=== PATIENT | male | born 1990 | race Hispanic/Latino ===

== ENCOUNTER 2017-11-22 18:48 | Inpatient (IN) | payer OTHER ==
[~2017-11-22] VITALS: Ht 167.6 cm; Wt 90.8 kg
[2017-11-22] MEDS ORDERED: KETOROLAC TROMETHAMINE 30 MG/ML VIAL IV STA (19:14)
[2017-11-22] MEDS ORDERED: ONDANSETRON HCL 4 MG ORAL DISINTEGRATING TAB PO ONE (19:15)
[2017-11-22] MEDS ORDERED: POTASSIUM CHLORIDE 20 MEQ TAB CR PO STA (19:48)
[2017-11-22] MEDS ORDERED: ULTRAM 50MG50 MG PO (19:53)
[2017-11-22] MEDS ORDERED: MORPHINE SULFATE 2 MG/ML SYR IV PRN (22:45)
[2017-11-23] VITALS (9 sets, daily range): BP systolic 101–117; BP diastolic 54–71
[2017-11-23] MEDS: D5.45%NS/KCL 20MEQ 1,000 ML IV SCH ×2 (01:11→07:30)
[2017-11-23 04:03] LABS: KETONES,URINE NEGATIVE (NEGATIVE); LEUKOCYTE ESTERASE ,URINE TRACE (NEGATIVE); NITRITE,URINE NEGATIVE (NEGATIVE); URINE UROBILINOGEN 4 mg/dL (0.2 - 1)
[2017-11-23 04:08] LABS: BILIRUBIN,URINE 2+ (NEGATIVE); CLARITY,URINE HAZY (CLEAR); COLOR,URINE ORANGE (YELLOW); PROTEIN,URINE DIPSTICK 1+ (NEGATIVE)
[2017-11-23 04:11] LABS: WBC,URINE (MAN) 0-5 /HPF (0-5)
[2017-11-23 04:12] LABS: BACTERIA,URINE RARE /HPF; EPITHELIAL CELLS,URINE FEW /LPF; RBC,URINE 0-5 /HPF (0-5)
[2017-11-23] MEDS: PROMETHAZINE 12.5MG/ NACL 0.9% 12.5 MG/50 ML BAG IV PRN ×2 (07:40→14:10)
[2017-11-23 08:00] LABS: BASOPHILS % 0.2 % (0.0-1.0); EOSINOPHILS # (AUTO) 0.1 (0.0-0.4); EOSINOPHILS % 0.4 % (0.0-6.0); HEMATOCRIT 41.7 % (38.2-49.6); MEAN CORPUSCULAR HEMOGLOBIN 28.4 pg (28-32); MEAN CORPUSCULAR HGB CONC 33.6 g/dL (31-35); MEAN CORPUSCULAR VOLUME 84.6 fL (81-99); MONOCYTES # (AUTO) 0.8 (0.2-0.8); MONOCYTES % 6.2 % (4.4-11.3); NEUTROPHILS # (AUTO) 10.2 (2.1-6.9); PLATELET COUNT 173 x10e3/uL (140-360); RED BLOOD COUNT 4.93 x10e6/uL (4.3-5.7); RED CELL DISTRIBUTION WIDTH 12.8 % (11.7-14.4)
[2017-11-23] MEDS: KETOROLAC TROMETHAMINE 30 MG/ML VIAL IV PRN (08:03)
[2017-11-23 08:24] LABS: ALANINE AMINOTRANSFERASE 484 IU/L (0-55); ALBUMIN 3.6 g/dL (3.5-5.0); ALBUMIN/GLOBULIN RATIO 1.2 (0.8-2.0); ALKALINE PHOSPHATASE 114 IU/L (40-150); AMYLASE 2168 U/L (25-125); ANION GAP 9.5 mmol/L (8-16); BLOOD UREA NITROGEN 8 mg/dL (7-26); BUN/CREATININE RATIO 10 (6-25); CALCIUM 8.6 mg/dL (8.4-10.2); CARBON DIOXIDE 23 mmol/L (22-29); CHLORIDE 105 mmol/L (98-107); CREATININE, SERUM 0.77 mg/dL (0.72-1.25); EST GLOMERULAR FILTRATION RATE > 60 ML/MIN (60-); GLUCOSE 135 mg/dL (74-118); POTASSIUM 3.5 mmol/L (3.5-5.1); SODIUM 134 mmol/L (136-145)
[2017-11-23] MEDS: LACTATED RINGER'S 1,000 ML IV SCH ×3 (09:30→23:30)
[2017-11-23] MEDS: SODIUM CHLORIDE 0.9% 1000ML 1,000 ML IV SCH ×2 (11:15→14:20)
[2017-11-23 11:25] LABS: LIPASE 6768 U/L (8-78)
[2017-11-23] MEDS ORDERED: SODIUM CHLORIDE 0.9% 1000ML 1,000 ML IV ONE ×2 (11:30)
[2017-11-23] MEDS ORDERED: HYDROMORPHONE 1MG/1ML INJ IV PRN (12:15)
[2017-11-23 12:16] LABS: CHOL/HDL RATIO 1.8 (3.9-4.7)
--- NOTE | 2017-11-23 12:36 | History and Physical ---
PRIMARY CARE PHYSICIAN: Dr. Romero. CHIEF COMPLAINT: Abdominal pain. HISTORY OF PRESENT ILLNESS: This is a 27-year-old man with a history of pancreatitis on 2 occasions, had his gallbladder removed in September 2017, now developing worsening abdominal pain with nausea and vomiting, came into the hospital. Here he is found to have a lipase about 6000. He is admitted for further evaluation and management. PAST MEDICAL HISTORY: Gallstone pancreatitis, recurrent pancreatitis on 2 occasions. PAST SURGICAL HISTORY: Cholecystectomy in September 2017. ALLERGIES: PER THE ELECTRONIC MEDICAL RECORDS. FAMILY HISTORY/SOCIAL HISTORY: Patient is . He has no children. 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 No alcohol, illicit drugs or cigarettes. MEDICATIONS: Per the electronic medical records. Medications reviewed. REVIEW OF SYSTEMS: Denies any dizziness, chest pain. VITAL SIGNS: Reviewed. PHYSICAL EXAMINATION GENERAL APPEARANCE: A tired-appearing man resting in bed. HEENT: Anicteric. Pupils responsive to light. No oral lesions. CARDIOVASCULAR: Normal S1/S2. LUNGS: Moderate breath sounds. No wheezing. ABDOMEN: Soft, nondistended. He has tenderness in the epigastric region. No rebound. EXTREMITIES: No edema. SKIN: Dry. PSYCHIATRIC: Flat affect. NEUROLOGICALLY: Alert and oriented x3. LABS: Reviewed. ASSESSMENT AND PLAN: This is a 27-year-old man. 1. Recurrent/acute pancreatitis. He had his gallbladder removed in September. He does not drink alcohol at all. His lipase is about 6000. We will keep patient n.p.o. Aggressive hydration, 2 liter bolus now and increase his fluids to 200 an hour. Will obtain labs, repeat labs in the morning. GI consultation. Will obtain a lipid panel. 2. Obesity. BMI is 33.0. Screening for diabetes and obtain a lipid panel. 3. Acute transaminitis. Rehydrate and recheck. His gallbladder was removed last year. 4. Dehydration. Rehydrate. 5. Abdominal pain. PRN pain medication. 6. Prophylaxis. Will use SCDs. 7. Disposition. Monitor closely. CT scan only shows some inflammatory changes in the peripancreatic region. Job#: [id number] EV
[2017-11-23] MEDS: HYDROMORPHONE 1MG/1ML INJ IV PRN ×2 (14:10→21:45)
[2017-11-23] MEDS ORDERED: LACTATED RINGER'S 1,000 ML IV ONE (15:30)
[2017-11-24] VITALS: BP 115/56
[2017-11-24] MEDS: LACTATED RINGER'S 1,000 ML IV SCH ×7 (02:10→23:45)
[2017-11-24 04:00] VITALS: BP 117/56
--- NOTE | 2017-11-24 06:35 | Progress Note ---
DATE: November 24, 2017 TIME: 6:05 a.m. OVERNIGHT: Less abdominal pain. REVIEW OF SYSTEMS: Denies any dizziness. PHYSICAL EXAMINATION VITAL SIGNS: Reviewed. GENERAL: A tired-appearing man resting in bed. HEENT: Anicteric. CARDIOVASCULAR: Normal S1 and S2. LUNGS: Moderate breath sounds. ABDOMEN: Soft and nondistended. He has mild tenderness in the epigastrium. EXTREMITIES: No edema. SKIN: Dry. PSYCHIATRIC: Flat affect. LABS: Reviewed. MEDICATIONS: Reviewed. ASSESSMENT: A 27-year-old man with: 1. Acute/recurrent pancreatitis. 2. Obesity: Body mass index 33. Hemoglobin A1c 5.1. 3. Acute transaminitis. 4. Dehydration. 5. Abdominal pain. PLAN 1. Follow up lipase this morning. 2. Continue IV fluids. 3. LDL is 16. 4. Alcohol level is less than 10. 5. Continue rehydration. 6. Continue medications. 7. Continue SCD. Job#: [id number] [place]
[2017-11-24 07:38] LABS: BASOPHILS % 0.2 % (0.0-1.0); EOSINOPHILS # (AUTO) 0.1 (0.0-0.4); HEMATOCRIT 38.1 % (38.2-49.6); HEMOGLOBIN 12.6 g/dL (14.0-18.0); LYMPHOCYTES # (AUTO) 1.5 (1.0-3.2); LYMPHOCYTES % 17.6 % (18.0-39.1); MEAN CORPUSCULAR HEMOGLOBIN 28.8 pg (28-32); MEAN CORPUSCULAR HGB CONC 33.1 g/dL (31-35); MONOCYTES # (AUTO) 0.5 (0.2-0.8); MONOCYTES % 6.2 % (4.4-11.3); NEUTROPHILS # (AUTO) 6.5 (2.1-6.9); NEUTROPHILS % 74.8 % (38.7-80.0); PLATELET COUNT 153 x10e3/uL (140-360); RED BLOOD COUNT 4.38 x10e6/uL (4.3-5.7); RED CELL DISTRIBUTION WIDTH 13.1 % (11.7-14.4)
[2017-11-24 08:00] VITALS: BP 111/57
[2017-11-24 08:10] LABS: ALANINE AMINOTRANSFERASE 269 IU/L (0-55); ALKALINE PHOSPHATASE 110 IU/L (40-150); ANION GAP 9.5 mmol/L (8-16); BILIRUBIN,DIRECT 0.9 mg/dL (0.0-5.0); BLOOD UREA NITROGEN 7 mg/dL (7-26); BUN/CREATININE RATIO 10 (6-25); CALCIUM 8.2 mg/dL (8.4-10.2); CARBON DIOXIDE 24 mmol/L (22-29); CHLORIDE 105 mmol/L (98-107); CREATININE, SERUM 0.73 mg/dL (0.72-1.25); EST GLOMERULAR FILTRATION RATE > 60 ML/MIN (60-); GLUCOSE 81 mg/dL (74-118); POTASSIUM 3.5 mmol/L (3.5-5.1); SODIUM 135 mmol/L (136-145)
[2017-11-24 12:00] VITALS: BP 118/55
[2017-11-24] MEDS ORDERED: GADOBENATE DIMEGLUMINE 1 ML IV ONE (14:01)
[2017-11-24] MEDS: KETOROLAC TROMETHAMINE 30 MG/ML VIAL IV PRN (16:11)
[2017-11-24 20:00] VITALS: BP 122/67
[2017-11-24] MEDS: PROMETHAZINE 12.5MG/ NACL 0.9% 12.5 MG/50 ML BAG IV PRN (23:45)
[2017-11-25] VITALS (7 sets, daily range): BP systolic 127–136; BP diastolic 58–81
[2017-11-25] MEDS: LACTATED RINGER'S 1,000 ML IV SCH ×9 (00:30→22:45)
[2017-11-25] MEDS: HYDROMORPHONE 1MG/1ML INJ IV PRN (01:10)
[2017-11-25 06:33] LABS: BASOPHILS % 0.5 % (0.0-1.0); EOSINOPHILS # (AUTO) 0.2 (0.0-0.4); EOSINOPHILS % 3.6 % (0.0-6.0); HEMATOCRIT 36.9 % (38.2-49.6); HEMOGLOBIN 12.1 g/dL (14.0-18.0); LYMPHOCYTES # (AUTO) 1.4 (1.0-3.2); LYMPHOCYTES % 22.7 % (18.0-39.1); MEAN CORPUSCULAR HEMOGLOBIN 28.6 pg (28-32); MEAN CORPUSCULAR HGB CONC 32.8 g/dL (31-35); MEAN CORPUSCULAR VOLUME 87.2 fL (81-99); MONOCYTES # (AUTO) 0.5 (0.2-0.8); MONOCYTES % 8.2 % (4.4-11.3); NEUTROPHILS # (AUTO) 4.1 (2.1-6.9); NEUTROPHILS % 64.7 % (38.7-80.0); PLATELET COUNT 149 x10e3/uL (140-360); RED BLOOD COUNT 4.23 x10e6/uL (4.3-5.7); RED CELL DISTRIBUTION WIDTH 13.1 % (11.7-14.4)
[2017-11-25 06:57] LABS: ALANINE AMINOTRANSFERASE 185 IU/L (0-55); ALBUMIN 2.9 g/dL (3.5-5.0); ALKALINE PHOSPHATASE 92 IU/L (40-150); AMYLASE 117 U/L (25-125); ANION GAP 11.7 mmol/L (8-16); BLOOD UREA NITROGEN 5 mg/dL (7-26); BUN/CREATININE RATIO 7 (6-25); CALCIUM 8.6 mg/dL (8.4-10.2); CARBON DIOXIDE 24 mmol/L (22-29); CHLORIDE 109 mmol/L (98-107); CREATININE, SERUM 0.69 mg/dL (0.72-1.25); EST GLOMERULAR FILTRATION RATE > 60 ML/MIN (60-); GLUCOSE 74 mg/dL (74-118); LIPASE 465 U/L (8-78); POTASSIUM 3.7 mmol/L (3.5-5.1); SODIUM 141 mmol/L (136-145)
[2017-11-26] VITALS: BP 120/72
[2017-11-26] MEDS: LACTATED RINGER'S 1,000 ML IV SCH ×3 (02:04→04:57)
[2017-11-26 04:00] VITALS: BP 116/63
[2017-11-26 07:32] LABS: BASOPHILS % 0.5 % (0.0-1.0); EOSINOPHILS # (AUTO) 0.3 (0.0-0.4); HEMATOCRIT 39.1 % (38.2-49.6); HEMOGLOBIN 13.2 g/dL (14.0-18.0); LYMPHOCYTES # (AUTO) 1.6 (1.0-3.2); MEAN CORPUSCULAR HEMOGLOBIN 28.6 pg (28-32); MEAN CORPUSCULAR HGB CONC 33.8 g/dL (31-35); MEAN CORPUSCULAR VOLUME 84.6 fL (81-99); MONOCYTES # (AUTO) 0.5 (0.2-0.8); MONOCYTES % 7.3 % (4.4-11.3); PLATELET COUNT 176 x10e3/uL (140-360); RED BLOOD COUNT 4.62 x10e6/uL (4.3-5.7); RED CELL DISTRIBUTION WIDTH 12.7 % (11.7-14.4)
[2017-11-26 07:35] VITALS: BP 120/80
[2017-11-26 07:47] LABS: ANION GAP 11.7 mmol/L (8-16); BLOOD UREA NITROGEN < 5 mg/dL (7-26); CALCIUM 8.9 mg/dL (8.4-10.2); CARBON DIOXIDE 27 mmol/L (22-29); CHLORIDE 106 mmol/L (98-107); CREATININE, SERUM 0.76 mg/dL (0.72-1.25); EST GLOMERULAR FILTRATION RATE > 60 ML/MIN (60-); GLUCOSE 90 mg/dL (74-118); POTASSIUM 3.7 mmol/L (3.5-5.1); SODIUM 141 mmol/L (136-145)
[2017-11-26 07:49] LABS: BUN/CREATININE RATIO 7 (6-25)
[2017-11-26 08:10] VITALS: BP 120/80
[2017-11-26 08:17] LABS: AMYLASE 37 U/L (25-125); LIPASE 299 U/L (8-78)
--- NOTE | 2017-11-26 08:44 | Progress Note ---
DATE: November 25, 2017 TIME: 7:50 a.m. OVERNIGHT: No events. REVIEW OF SYSTEMS: Denies any dizziness. VITAL SIGNS: Reviewed. PHYSICAL EXAMINATION GENERAL: A tired-appearing man resting in bed. HEENT: Anicteric. CARDIOVASCULAR: Normal S1 and S2. LUNGS: Moderate breath sounds. ABDOMEN: Soft and nontender. EXTREMITIES: No edema or calf tenderness. NEUROLOGIC: Alert and oriented times 3. Moving all extremities. SKIN: Dry. PSYCHIATRIC: Normal affect. LABS: Reviewed. MEDICATIONS: Reviewed. ASSESSMENT: A 27-year-old man. 1. Acute/recurrent pancreatitis. 2. Obesity. BMI of 33. Hemoglobin A1c 5.1. 3. Acute transaminitis. 4. Dehydration. 5. Abdominal pain. PLAN 1. Continue IV fluids. 2. Continue to follow lipase level. 3. Continue to limit food intake. 4. Follow up GI recommendations. Job#: [id number]
--- NOTE | 2017-11-26 08:45 | Progress Note ---
DATE: November 26, 2017 TIME: 8:15 a.m. OVERNIGHT: No events. REVIEW OF SYSTEMS: Denies any dizziness. PHYSICAL EXAMINATION VITAL SIGNS: Reviewed. GENERAL: A tired-appearing man resting in bed. HEENT: Anicteric. CARDIOVASCULAR: Normal S1 and S2. LUNGS: Moderate breath sounds. ABDOMEN: Soft and nontender. EXTREMITIES: No edema or calf tenderness. NEUROLOGICAL: Alert and oriented times 3. Moving all extremities. SKIN: Dry. PSYCHIATRIC: Normal affect. LABS: Reviewed. MEDICATIONS: Reviewed. ASSESSMENT: A 27-year-old man with: 1. Acute/recurrent pancreatitis. 2. Obesity: Body mass index 33. Hemoglobin A1c 5.1. 3. Acute transaminitis. 4. Dehydration. 5. Abdominal pain. PLAN 1. Continue IV fluids. 2. N.p.o. status per GI service. 3. Lipase level today is still pending. 4. All cultures are negative. 5. Follow up MRCP. Job#: [id number] PA
[2017-11-26 12:00] VITALS: BP 123/79
== END 2017-11-26 13:45 | disposition home or self-care (01) | DRG 440 ==
LOC: FSED 18:48 → MED/SURG3 23:13
PROVIDERS: ADMIT Internal Medicine; ATTEND Internal Medicine
DX: K85.10 Biliary acute pancreatitis without necrosis or infection (principal); E66.9 Obesity, unspecified; E86.0 Dehydration; R74.0 Nonspecific elevation of levels of transaminase and lactic acid dehydrogenase [LDH]; Z68.33 Body mass index [BMI] 33.0-33.9, adult; Z90.49 Acquired absence of other specified parts of digestive tract
CPT/HCPCS: 36415; 74183; 80048; 80053; 80061; 80076; 80320; 81001; 82150; 83036; 83690; 85025; 87086; 96361; 96365; 99283; J1170; J1885; J2270; J2550; J7030; J7120